=== PATIENT | female | born 1955 | race Caucasian/White ===

== ENCOUNTER 2019-12-09 04:08 | Inpatient (IN) | payer OTHER ==
[~2019-12-09] VITALS: Ht 160 cm; Wt 101.3 kg
[~2019-12-09 04:08] MED LIST: HYDR12.58 PO; LEVO137T3 PO; PANT40TA77 PO
[2019-12-09] MEDS ORDERED: fentaNYL PF VIAL 100 MCG/2 ML VIAL ONE (04:35)
--- NOTE | 2019-12-09 04:53 | PHYS DOC ---
Past Medical History Past Medical History: Alcoholism, COPD, GERD, Hypertension, Hypothyroid Past Surgical History: No Surgical History Smoking Status: Current Every Day Smoker Additional Information: 1 PPD X45 YEARS Alcohol Use: Heavy Additional Information: WINE DAILY 4 DRINKS Adult General Chief Complaint Chief Complaint: SHORTNESS OF BREATH HPI HPI Patient is a 64-year-old female heavy smoker who also drinks daily presents with a several day history of progressive shortness of breath cough congestion. Patient states she does continue to smoke. She has been coughing. She denies running any fever. She states her shortness of breath has been progressive she does have dyspnea on exertion. She states this feels very similar to previous exacerbations of her COPD. She has had no recent travel. She has not come in contact with anyone sick that she knows of. She denies any chest pain. Patient came by EMS and on their arrival to her house her oxygen saturation was in the mid 80s.[] Review of Systems Review of Systems Constitutional: Denies fever or chills [] Eyes: Denies change in visual acuity, redness, or eye pain [] HENT: Denies nasal congestion or sore throat [] Respiratory: Per history of present illness[] Cardiovascular: No additional information not addressed in HPI [] GI: Denies abdominal pain, nausea, vomiting, bloody stools or diarrhea [] : Denies dysuria or hematuria [] Musculoskeletal: Denies back pain or joint pain [] Integument: Denies rash or skin lesions [] Neurologic: Denies headache, focal weakness or sensory changes [] Endocrine: Denies polyuria or polydipsia [] All other systems were reviewed and found to be within normal limits, except as documented in this note. Current Medications Current Medications Current Medications Medications (Trade) Dose Ordered Sig/Pamela Start Time Stop Time Status Last Admin Dose Admin Acetaminophen (Tylenol) 650 mg PRN Q4HRS PRN 12/09/19 05:00 12/10/19 04:59 Albuterol Sulfate (Ventolin Neb Soln) 2.5 mg 1X ONCE 12/09/19 05:00 12/09/19 05:01 DC 12/09/19 05:12 2.5 MG Albuterol/ Ipratropium (Duoneb) 6 ml 1X ONCE 12/09/19 05:00 12/09/19 05:01 DC 12/09/19 05:12 6 ML Fentanyl Citrate (Fentanyl 2ml Vial) 100 mcg STK-MED ONCE 12/09/19 04:35 12/09/19 04:35 DC Methylprednisolone Sodium Succinate (SOLU-Medrol 125MG VIAL) 125 mg 1X ONCE 12/09/19 05:00 12/09/19 05:01 DC 12/09/19 05:11 125 MG Ondansetron HCl (Zofran) 4 mg PRN Q8HRS PRN 12/09/19 05:00 12/10/19 04:59 Sodium Chloride 1,000 ml @ 125 mls/hr Q8H 12/09/19 05:00 12/10/19 04:59 12/09/19 05:01 125 MLS/HR Allergies Allergies Allergies Uncoded Allergies Type Severity Reaction Last Updated Verified SULFA Allergy Intermediate FACIAL SWELLING 12/09/19 Physical Exam Physical Exam Constitutional: Well developed, well nourished, moderate respiratory distress, non-toxic appearance. [] HENT: Normocephalic, atraumatic, bilateral external ears normal, oropharynx moist, no oral exudates, nose normal. [] Eyes: PERRLA, EOMI, conjunctiva normal, no discharge. [] Neck: Normal range of motion, no tenderness, supple, no stridor. [] Cardiovascular:Heart rate regular rhythm, no murmur [] Lungs & Thorax: Wheezes throughout both lungs[] Abdomen: Bowel sounds normal, soft, no tenderness, no masses, no pulsatile masses. [] Skin: Warm, dry, no erythema, no rash. [] Back: No tenderness, no CVA tenderness. [] Extremities: No tenderness, no cyanosis, no clubbing, ROM intact, no edema. [] Neurologic: Alert and oriented X 3, normal motor function, normal sensory function, no focal deficits noted. [] Psychologic: Anxious. [] Current Patient Data Vital Signs Vital Signs Date Time Temp Pulse Resp B/P (MAP) Pulse Ox O2 Delivery O2 Flow Rate FiO2 12/09/19 05:17 100 Nasal Cannula 2.0 12/09/19 04:21 98.1 85 26 161/78 (105) 98.1 Lab Values Laboratory Tests Test 12/09/19 04:20 White Blood Count 8.0 x10^3/uL (4.0-11.0) Red Blood Count 4.11 x10^6/uL (3.50-5.40) Hemoglobin 14.5 g/dL (12.0-15.5) Hematocrit 41.6 % (36.0-47.0) Mean Corpuscular Volume 101 fL (79-100) H Mean Corpuscular Hemoglobin 35 pg (25-35) Mean Corpuscular Hemoglobin Concent 35 g/dL (31-37) Red Cell Distribution Width 12.8 % (11.5-14.5) Platelet Count 293 x10^3/uL (140-400) Neutrophils (%) (Auto) 48 % (31-73) Lymphocytes (%) (Auto) 22 % (24-48) L Monocytes (%) (Auto) 7 % (0-9) Eosinophils (%) (Auto) 23 % (0-3) H Basophils (%) (Auto) 1 % (0-3) Neutrophils # (Auto) 3.8 x10^3/uL (1.8-7.7) Lymphocytes # (Auto) 1.8 x10^3/uL (1.0-4.8) Monocytes # (Auto) 0.5 x10^3/uL (0.0-1.1) Eosinophils # (Auto) 1.8 x10^3/uL (0.0-0.7) H Basophils # (Auto) 0.1 x10^3/uL (0.0-0.2) Platelet Estimate Pending Sodium Level 126 mmol/L (136-145) L Potassium Level 3.8 mmol/L (3.5-5.1) Chloride Level 88 mmol/L (98-107) L Carbon Dioxide Level 32 mmol/L (21-32) Anion Gap 6 (6-14) Blood Urea Nitrogen 8 mg/dL (7-20) Creatinine 0.7 mg/dL (0.6-1.0) Estimated GFR (Cockcroft-Gault) 84.8 BUN/Creatinine Ratio 11 (6-20) Glucose Level 98 mg/dL (70-99) Calcium Level 10.1 mg/dL (8.5-10.1) Total Bilirubin 0.3 mg/dL (0.2-1.0) Aspartate Amino Transferase (AST) 22 U/L (15-37) Alanine Aminotransferase (ALT) 23 U/L (14-59) Alkaline Phosphatase 106 U/L (46-116) Troponin I Quantitative < 0.017 ng/mL (0.000-0.055) XF-Rik-Y-Type Natriuretic Peptide 224 pg/mL (0-124) H Total Protein 8.2 g/dL (6.4-8.2) Albumin 4.3 g/dL (3.4-5.0) Albumin/Globulin Ratio 1.1 (1.0-1.7) Laboratory Tests 12/09/19 04:20 Laboratory Tests 12/09/19 04:20 EKG EKG EKG: Normal sinus rhythm rate of [address]-T changes[] Radiology/Procedures Radiology/Procedures [] Course & Med Decision Making Course & Med Decision Making Pertinent Labs and Imaging studies reviewed. (See chart for details) [ED course: Evaluation reveals a 64-year-old female with a progressive history of shortness of breath and tobacco abuse. Her symptoms today seem consistent with a COPD exacerbation. She was given 125 of Solu-Medrol followed by 2 DuoNeb's and an albuterol nebulize treatment. After 3 treatments she continued to wheeze therefore I believe it's in her best interest to remain in the hospital for aggressive nebulized treatment.] CRITICAL CARE: Time spent was 35 minutes. This includes medical management, evaluation, reevaluation, discussion with consultants and family. Critical Care does NOT include time spent on separately billed procedures. Dragon Disclaimer Dragon Disclaimer This electronic medical record was generated, in whole or in part, using a voice recognition dictation system. Departure Departure Impression: Primary Impression: COPD with exacerbation Additional Impression: Hyponatremia Disposition: ADMITTED INPATIENT Admitting Physician: GABRIELLE Condition: GUARDED Referrals: MARSHALL LUTHER MD (PCP) Problem Qualifiers FRED STOVALL DO Dec 09, 2019 04:53
[2019-12-09 04:58] LABS: BASO # 0.1 x10^3/uL (0.0-0.2); BASO % 1 % (0-3); EOS # 1.8 x10^3/uL (0.0-0.7); EOS % 23 % (0-3); HEMATOCRIT 41.6 % (36.0-47.0); HEMOGLOBIN 14.5 g/dL (12.0-15.5); LYMPH # 1.8 x10^3/uL (1.0-4.8); LYMPH % 22 % (24-48); MEAN CORPUSCULAR HEMOGLOBIN 35 pg (25-35); MEAN CORPUSCULAR HGB CONC 35 g/dL (31-37); MEAN CORPUSCULAR VOLUME 101 fL (79-100); MONO # 0.5 x10^3/uL (0.0-1.1); MONO % 7 % (0-9); NEUT # 3.8 x10^3/uL (1.8-7.7); NEUT % 48 % (31-73); PLATELET COUNT 293 x10^3/uL (140-400); RED BLOOD COUNT 4.11 x10^6/uL (3.50-5.40); RED CELL DISTRIBUTION WIDTH 12.8 % (11.5-14.5)
[2019-12-09] MEDS ORDERED: ACETAMINOPHEN 325 MG TABLET. PO PRN (05:00)
[2019-12-09] MEDS ORDERED: ONDANSETRON PF 4 MG/2 ML VIAL. IV PRN (05:00)
[2019-12-09] MEDS ORDERED: IV NORMAL SALINE 1000ML BAG 1,000 ML IV SCH (05:00)
[2019-12-09] MEDS ORDERED: IPRATRPIUM/ALBUTEROL 0.5/2.5MG 3 ML NEBU. NEB ONE (05:00)
[2019-12-09] MEDS ORDERED: methylPREDNISolone SOD SUCC PF 125 MG/2 ML VIAL. IV ONE (05:00)
[2019-12-09] MEDS ORDERED: ALBUTEROL SULFATE 2.5 MG/3 ML NEBU. NEB ONE (05:00)
[2019-12-09 05:09] LABS: CALCIUM 10.1 mg/dL (8.5-10.1); CREATININE 0.7 mg/dL (0.6-1.0); GFR 84.8; POTASSIUM 3.8 mmol/L (3.5-5.1)
[2019-12-09 05:15] LABS: ALBUMIN 4.3 g/dL (3.4-5.0); ALBUMIN/GLOBULIN RATIO 1.1 (1.0-1.7); TOTAL BILIRUBIN 0.3 mg/dL (0.2-1.0); TOTAL PROTEIN 8.2 g/dL (6.4-8.2)
[2019-12-09 06:19] VITALS: BP 147/65
--- NOTE | 2019-12-09 06:40 | RAD ---
EXAM: CHEST ONE VIEW. HISTORY: Shortness of breath. COMPARISON: None. FINDINGS: A frontal view of the chest is obtained. Hyperinflation suggests chronic obstructive pulmonary disease or air trapping. There are no confluent infiltrates. There is no pneumothorax or pleural effusion. The heart is not enlarged. IMPRESSION: 1. Hyperinflation. Correlate for air trapping. No confluent infiltrates. Electronically signed by: Davidson Nina MD (12/09/2019 6:37 AM) [facility]
--- NOTE | 2019-12-09 06:46 | EKG ---
[facility] [address] [place] [address] Test Date: 2019-12-09 Test Time: 04:17:25 Pat Name: DILLON MARCUS Department: Room: [facility] Gender: F Senior Bi Developer: : 1955 Requested By: FRED STOVALL Order Number: [id number] Reading MD: Corbin Bah MD Measurements Intervals Dowell Rate: 89 P: 72 CA: 138 QRS: 79 QRSD: 88 T: 63 QT: 330 QTc: 402 Interpretive Statements SINUS RHYTHM NON-SPECIFIC ST/T CHANGES Electronically Signed On 12-10-2019 10:43:07 CDT by Corbin Bah MD
--- NOTE | 2019-12-09 08:14 | PDOC1 ---
History and Physical Date of Admission Date of Admission DATE: 12/09/19 TIME: 08:05 Identification/Chief Complaint Chief Complaint Shortness of breath Source Source: Patient History of Present Illness History of Present Illness Ms Moser is a 64yo F w/ PMHx COPD, GERD, Hypertension, Hypothyroid, heavy smoker who also drinks at least 4 glasses of wine daily presents with a several day history of progressive shortness of breath cough congestion. Patient states she does continue to smoke. She has been coughing. She denies running any fever. She states her shortness of breath has been progressive she does have dyspnea on exertion. She states this feels very similar to previous exacerbations of her COPD. She has had no recent travel. She has not come in contact with anyone sick that she knows of. She denies any chest pain. Patient came by EMS and on their arrival to her house her oxygen saturation was in the mid 80s. EKG - NSR. CXR - Hyperinflated, COPD Past Medical History Cardiovascular: HTN Pulmonary: COPD GI: GERD Psych: Addictions Endocrine: Hypothyroidism Past Surgical History Past Surgical History: No pertinent history Family History Family History: High Cholestrol, Hypertension, Hypothyroidism Social History Smoke: 2 packs per day ALCOHOL: heavy Drugs: None Current Problem List Problem List Problems Medical Problems: (1) COPD with exacerbation Status: Acute (2) Hyponatremia Status: Acute Current Medications Current Medications Current Medications Fentanyl Citrate (Fentanyl 2ml Vial) 100 mcg STK-MED ONCE .ROUTE ; Start 12/09/19 at 04:35; Stop 12/09/19 at 04:35; Status DC Albuterol/ Ipratropium (Duoneb) 6 ml 1X ONCE NEB Last administered on 12/09/19at 05:12; Start 12/09/19 at 05:00; Stop 12/09/19 at 05:01; Status DC Methylprednisolone Sodium Succinate (SOLU-Medrol 125MG VIAL) 125 mg 1X ONCE IV Last administered on 12/09/19at 05:11; Start 12/09/19 at 05:00; Stop 12/09/19 at 05:01; Status DC Albuterol Sulfate (Ventolin Neb Soln) 2.5 mg 1X ONCE NEB Last administered on 12/09/19at 05:12; Start 12/09/19 at 05:00; Stop 12/09/19 at 05:01; Status DC Ondansetron HCl (Zofran) 4 mg PRN Q8HRS PRN IV NAUSEA/VOMITING; Start 12/09/19 at 05:00; Stop 12/10/19 at 04:59 Sodium Chloride 1,000 ml @ 125 mls/hr Q8H IV Last administered on 12/09/19at 05:01; Start 12/09/19 at 05:00; Stop 12/10/19 at 04:59 Acetaminophen (Tylenol) 650 mg PRN Q4HRS PRN PO FEVER; Start 12/09/19 at 05:00; Stop 12/10/19 at 04:59 Albuterol/ Ipratropium (Duoneb) 3 ml RTQID NEB ; Start 12/09/19 at 08:00; Stop 12/10/19 at 07:59 Methylprednisolone Sodium Succinate (SOLU-Medrol 40MG VIAL) 40 mg Q8HRS IV ; Start 12/09/19 at 14:00 Active Scripts Active Reported Protonix (Pantoprazole Sodium) 40 Mg Tablet.dr 40 Mg PO DAILY Hydrochlorothiazide Tablet (Hydrochlorothiazide) 12.5 Mg Tablet 12.5 Mg PO DAILY Levothyroxine Sodium 137 Mcg Tablet 137 Mcg PO DAILYAC Allergies Allergies: Uncoded Allergies: SULFA (Allergy, Intermediate, FACIAL SWELLING, 12/09/19) PT REPORTS FACIAL SWELLING WITH SULFAS ROS General: YES: Fatigue, Malaise; No: Chills, Night Sweats, Appetite, Other PSYCHOLOGICAL ROS: YES: Anxiety; No: Behavioral Disorder, Concentration difficultie, Decreased libido, Depression, Disorientation, Hallucinations, Hostility, Irritablity, Memory difficulties, Mood Swings, Obsessive thoughts, Physical abuse, Sexual abuse, Sleep disturbances, Suicidal ideation, Other Eyes: No Blurry vision, No Decreased vision, No Double vision, No Dry eyes, No Excessive tearing, No Eye Pain, No Itchy Eyes, No Loss of vision, No Photophobia , No Scotomata, No Uses contacts, No Uses glasses, No Other HEENT: No: Heacaches, Visual Changes, Hearing change, Nasal congestion, Nasal discharge, Oral lesions, Sinus pain, Sore Throat, Epistaxis, Sneezing, Snoring, Tinnitus, Vertigo, Vocal changes, Other ALLERGY AND IMMUNOLOGY: No: Hives, Insect Bite Sensitivity, Itchy/Watery Eyes, Nasal Congestion, Post Nasal Drip, Seasonal Allergies, Other Hematological and Lymphatic: No: Bleeding Problems, Blood Clots, Blood Transfusions, Brusing, Night Sweats, Pallor, Swollen Lymph Nodes, Other ENDOCRINE: No: Breast Changes, Galactorrhea, Hair Pattern Changes, Hot Flashes, Malaise/lethargy, Mood Swings, Palpitations, Polydipsia/polyuria, Skin Changes, Temperature Intolerance, Unexpected Weight Changes, Other Breast: No New/Changing Breast Lumps, No Nipple changes, No Nipple discharge, No Other Respiratory: YES: Cough, Shortness of breath, SOB with excertion, Tachypnea, Wh eezing; No: Hemoptysis, Orthopnea, Pleuritic Pain, Sputum Changes, Stridor, Other Cardiovascular: No Chest Pain, No Palpitations, No Orthopnea, No Paroxysmal Noc. Dyspnea, No Edema, No Lt Headedness, No Other Gastrointestinal: No Nausea, No Vomiting, No Abdominal Pain, No Diarrhea, No Constipation, No Melena, No Hematochezia, No Other Genitourinary: No Dysuria, No Frequency, No Incontinence, No Hematuria, No Retention, No Discharge, No Urgency, No Pain, No Flank Pain, No Other, No , No , No , No , No , No , No Musculoskeletal: No Gait Disturbance, No Joint Pain, No Joint Stiffness, No Joint Swelling, No Muscle Pain, No Muscular Weakness, No Pain In:, No Swelling In:, No Other Neurological: No Behavorial Changes, No Bowel/Bladder ControlChng, No Confusion, No Dizziness, No Gait Disturbance, No Headaches, No Impaired Coord/balance, No Memory Loss, No Numbness/Tingling, No Seizures, No Speech Problems, No Tremors, No Visual Changes, No Weakness, No Other Skin: No Dry Skin, No Eczema, No Hair Changes, No Lumps, No Mole Changes, No Mottling, No Nail Changes, No Pruritus, No Rash, No Skin Lesion Changes, No Other, No Acne Vitals Vitals Vital Signs Date Time Temp Pulse Resp B/P (MAP) Pulse Ox O2 Delivery O2 Flow Rate FiO2 12/09/19 06:19 98.3 89 20 147/65 (92) 95 Nasal Cannula 2.0 98.3 Labs Labs Laboratory Tests Test 12/09/19 04:20 White Blood Count 8.0 x10^3/uL (4.0-11.0) Red Blood Count 4.11 x10^6/uL (3.50-5.40) Hemoglobin 14.5 g/dL (12.0-15.5) Hematocrit 41.6 % (36.0-47.0) Mean Corpuscular Volume 101 fL (79-100) Mean Corpuscular Hemoglobin 35 pg (25-35) Mean Corpuscular Hemoglobin Concent 35 g/dL (31-37) Red Cell Distribution Width 12.8 % (11.5-14.5) Platelet Count 293 x10^3/uL (140-400) Neutrophils (%) (Auto) 48 % (31-73) Lymphocytes (%) (Auto) 22 % (24-48) Monocytes (%) (Auto) 7 % (0-9) Eosinophils (%) (Auto) 23 % (0-3) Basophils (%) (Auto) 1 % (0-3) Neutrophils # (Auto) 3.8 x10^3/uL (1.8-7.7) Lymphocytes # (Auto) 1.8 x10^3/uL (1.0-4.8) Monocytes # (Auto) 0.5 x10^3/uL (0.0-1.1) Eosinophils # (Auto) 1.8 x10^3/uL (0.0-0.7) Basophils # (Auto) 0.1 x10^3/uL (0.0-0.2) Sodium Level 126 mmol/L (136-145) Potassium Level 3.8 mmol/L (3.5-5.1) Chloride Level 88 mmol/L (98-107) Carbon Dioxide Level 32 mmol/L (21-32) Anion Gap 6 (6-14) Blood Urea Nitrogen 8 mg/dL (7-20) Creatinine 0.7 mg/dL (0.6-1.0) Estimated GFR (Cockcroft-Gault) 84.8 BUN/Creatinine Ratio 11 (6-20) Glucose Level 98 mg/dL (70-99) Calcium Level 10.1 mg/dL (8.5-10.1) Total Bilirubin 0.3 mg/dL (0.2-1.0) Aspartate Amino Transf (AST/SGOT) 22 U/L (15-37) Alanine Aminotransferase (ALT/SGPT) 23 U/L (14-59) Alkaline Phosphatase 106 U/L (46-116) Troponin I Quantitative < 0.017 ng/mL (0.000-0.055) AG-Muf-S-Type Natriuretic Peptide 224 pg/mL (0-124) Total Protein 8.2 g/dL (6.4-8.2) Albumin 4.3 g/dL (3.4-5.0) Albumin/Globulin Ratio 1.1 (1.0-1.7) Laboratory Tests Test 12/09/19 04:20 White Blood Count 8.0 x10^3/uL (4.0-11.0) Red Blood Count 4.11 x10^6/uL (3.50-5.40) Hemoglobin 14.5 g/dL (12.0-15.5) Hematocrit 41.6 % (36.0-47.0) Mean Corpuscular Volume 101 fL (79-100) Mean Corpuscular Hemoglobin 35 pg (25-35) Mean Corpuscular Hemoglobin Concent 35 g/dL (31-37) Red Cell Distribution Width 12.8 % (11.5-14.5) Platelet Count 293 x10^3/uL (140-400) Neutrophils (%) (Auto) 48 % (31-73) Lymphocytes (%) (Auto) 22 % (24-48) Monocytes (%) (Auto) 7 % (0-9) Eosinophils (%) (Auto) 23 % (0-3) Basophils (%) (Auto) 1 % (0-3) Neutrophils # (Auto) 3.8 x10^3/uL (1.8-7.7) Lymphocytes # (Auto) 1.8 x10^3/uL (1.0-4.8) Monocytes # (Auto) 0.5 x10^3/uL (0.0-1.1) Eosinophils # (Auto) 1.8 x10^3/uL (0.0-0.7) Basophils # (Auto) 0.1 x10^3/uL (0.0-0.2) Sodium Level 126 mmol/L (136-145) Potassium Level 3.8 mmol/L (3.5-5.1) Chloride Level 88 mmol/L (98-107) Carbon Dioxide Level 32 mmol/L (21-32) Anion Gap 6 (6-14) Blood Urea Nitrogen 8 mg/dL (7-20) Creatinine 0.7 mg/dL (0.6-1.0) Estimated GFR (Cockcroft-Gault) 84.8 BUN/Creatinine Ratio 11 (6-20) Glucose Level 98 mg/dL (70-99) Calcium Level 10.1 mg/dL (8.5-10.1) Total Bilirubin 0.3 mg/dL (0.2-1.0) Aspartate Amino Transf (AST/SGOT) 22 U/L (15-37) Alanine Aminotransferase (ALT/SGPT) 23 U/L (14-59) Alkaline Phosphatase 106 U/L (46-116) Troponin I Quantitative < 0.017 ng/mL (0.000-0.055) ON-Hvp-A-Type Natriuretic Peptide 224 pg/mL (0-124) Total Protein 8.2 g/dL (6.4-8.2) Albumin 4.3 g/dL (3.4-5.0) Albumin/Globulin Ratio 1.1 (1.0-1.7) Images Images CXR - Hyperinflation suggests chronic obstructive pulmonary disease or air trapping. There are no confluent infiltrates. There is no pneumothorax or pleural effusion. The heart is not enlarged. IMPRESSION: 1. Hyperinflation. Correlate for air trapping. No confluent infiltrates. VTE Prophylaxis Ordered VTE Prophylaxis Devices: No VTE Pharmacological Prophylaxi: Yes Assessment/Plan Assessment/Plan A/P: Acute hypoxic respiratory failure - on new O2, will consult pulm and wean as tolerated. Steroids, nebs Acute exacerbation of chronic obstructive pulmonary disease - as above. Smoking cessation counseling given Heavy smoker since age 17 and continues to smoke, not interested in quitting ETOH use disorder - not controlled. CIWA scale, counseled on cessation Hyponatremia - likely due to poor nutrition and heavy ETOH use, alternatively could be legionella pneumonia, will consult pulm Macrocytosis - likely due to heavy alcohol use. Counseled on cessation FEN - General diet PPX - lovenox FULL CODE Dispo - inpatient due to hypoxia from COPD likely due to smoking BLAKE BENITEZ MD Dec 09, 2019 08:14
[2019-12-09] MEDS ORDERED: LORazepam 1 MG TABLET PO PRN (08:15)
[2019-12-09] MEDS ORDERED: cloNIDine HCL 0.1 MG TABLET PO PRN (08:15)
[2019-12-09] MEDS ORDERED: ALBUTEROL SULFATE 2.5 MG/3 ML NEBU. NEB PRN (08:15)
[2019-12-09] MEDS ORDERED: guaiFENesin DM 200MG/20MG 10 ML SYRUP PO PRN (08:45)
[2019-12-09] MEDS: BUDESONIDE 0.5 MG/2 ML NEBU. NEB SCH ×2 (09:24→20:10)
[2019-12-09] MEDS: IPRATRPIUM/ALBUTEROL 0.5/2.5MG 3 ML NEBU. NEB SCH ×4 (09:24→20:10)
[2019-12-09 10:21] LABS: % EOS 26 % (0-5); % LYMPHS 24 % (24-48); % MONOS 11 % (0-10); % SEGS 39 % (35-66); PLT ESTIMATE ADEQUATE (ADEQUATE)
[2019-12-09] MEDS ORDERED: LISI1TAB19 PO (10:56)
--- NOTE | 2019-12-09 10:58 | CONS ---
DATE OF CONSULTATION: PULMONARY CONSULTATION ATTENDING PHYSICIAN: Dr. Ceron. REASON FOR CONSULTATION: COPD exacerbation. HISTORY OF PRESENT ILLNESS: The patient is 64-year-old who has been a smoker since age 17 and continues to smoke 1 pack a day. She has history of alcoholism as well. She presented to the hospital with increased shortness of breath. She has a cough with white sputum production. No obvious fever. No nausea, vomiting, no diarrhea, no dysuria, no focal weakness. No history of deep vein thrombosis or pulmonary embolism. Saturations were in the mid-80s. She was placed on oxygen at 2 liters. Chest x-ray did not reveal any acute infiltrates. PAST MEDICAL HISTORY: COPD could be severe. Ongoing tobaccoism. PAST SURGICAL HISTORY: No recent surgeries. ALLERGIES: SULFA. MEDICATIONS: Reviewed as listed in the MRAD including IV steroids and bronchodilators. REVIEW OF SYSTEMS: Twelve-point system obtained. Pertinent positives discussed in my present illness, otherwise noncontributory. All systems that were negative were reviewed as well. SOCIAL HISTORY: Smoker since age 17 and continues to smoke cigarettes 1 pack a day. FAMILY HISTORY: Noncontributory to lungs. PHYSICAL EXAMINATION: VITAL SIGNS: Reviewed. Pulse ox initially was 100% on 15 liters, now down to 2 liters and 96% saturation. Afebrile. NECK: Supple. LUNGS: With diminished breath sounds. CARDIOVASCULAR: Regular rate. ABDOMEN: Soft, nontender. EXTREMITIES: With no pitting edema. LABORATORY DATA: Reviewed. White cell count 8.0, hemoglobin 14.5, platelets are 293. BUN and creatinine normal. IMPRESSION: 1. Acute exacerbation of chronic obstructive pulmonary disease in a patient who has been a smoker since age 17 and continues to smoke cigarette. Probably triggered by acute bronchitis. 2. No definite pneumonia seen on the chest x-ray. 3. History of alcoholism. RECOMMENDATIONS: 1. Clinically better. We will continue with present oxygen and wean FiO2 to keep saturation 92 and above. 2. Continue DuoNeb. 3. Continue with steroid inhaler, Pulmicort. 4. DVT prophylaxis. 5. IV steroids with taper. 6. Anticipate discharge in 24 hours. 7. Smoking cessation counseling provided. Discussed with RN. SANGEETHA MENDEZ MD DR: MICHELLE/fior JOB#: [id number] / [id number]
[2019-12-09 11:09] VITALS: BP 148/70
[2019-12-09] MEDS: hydroCHLOROthiazide 12.5 MG CAPSULE PO SCH (14:02)
[2019-12-09] MEDS: MULTIVITAMIN with MINERAL TABLET. PO SCH (14:02)
[2019-12-09] MEDS: PANTOPRAZOLE 40 MG TABLET.DR. PO SCH (14:03)
[2019-12-09] MEDS: FOLIC ACID 1 MG TABLET. PO SCH (14:03)
[2019-12-09] MEDS: LISINOPRIL 20 MG TABLET PO SCH (14:03)
[2019-12-09] MEDS: THIAMINE 100 MG TABLET. PO SCH (14:04)
[2019-12-09] MEDS: ENOXAPARIN 40 MG/0.4 ML SYRINGE. SQ SCH (14:05)
[2019-12-09] MEDS: NICOTINE 21MG PATCH. TD SCH (14:07)
[2019-12-09] MEDS: methylPREDNISolone SOD SUCC PF 40 MG/ML VIAL. IV SCH ×2 (14:12→21:43)
[2019-12-09 15:15] VITALS: BP 138/66
[2019-12-09 19:00] VITALS: BP 137/68
[2019-12-09] MEDS ORDERED: MONTELUKAST SODIUM 10 MG TABLET. PO SCH (21:00)
[2019-12-09 23:00] VITALS: BP 145/75
[2019-12-10] MEDS ORDERED: diphenhydrAMINE HCL 25 MG CAPSULE PO PRN (00:15)
[2019-12-10 03:00] VITALS: BP 93/66
[2019-12-10 05:49] LABS: CALCIUM 9.1 mg/dL (8.5-10.1); CREATININE 0.8 mg/dL (0.6-1.0); GFR 72.7; POTASSIUM 3.3 mmol/L (3.5-5.1)
[2019-12-10] MEDS ORDERED: LEVOTHYROXINE 112 MCG TABLET PO SCH (06:00)
[2019-12-10] MEDS: methylPREDNISolone SOD SUCC PF 40 MG/ML VIAL. IV SCH ×2 (06:23→14:19)
[2019-12-10 07:00] VITALS: BP 125/58
[2019-12-10] MEDS: IPRATRPIUM/ALBUTEROL 0.5/2.5MG 3 ML NEBU. NEB SCH ×4 (07:51→20:00)
[2019-12-10] MEDS: BUDESONIDE 0.5 MG/2 ML NEBU. NEB SCH ×2 (07:51→20:00)
[2019-12-10] MEDS: FOLIC ACID 1 MG TABLET. PO SCH (09:45)
[2019-12-10] MEDS: PANTOPRAZOLE 40 MG TABLET.DR. PO SCH (09:45)
[2019-12-10] MEDS: MULTIVITAMIN with MINERAL TABLET. PO SCH (09:45)
[2019-12-10] MEDS: THIAMINE 100 MG TABLET. PO SCH (09:45)
[2019-12-10] MEDS: hydroCHLOROthiazide 12.5 MG CAPSULE PO SCH (09:46)
[2019-12-10] MEDS: LISINOPRIL 20 MG TABLET PO SCH (09:46)
[2019-12-10] MEDS: NICOTINE 21MG PATCH. TD SCH (09:46)
[2019-12-10] MEDS: ENOXAPARIN 40 MG/0.4 ML SYRINGE. SQ SCH (09:47)
--- NOTE | 2019-12-10 10:35 | PDOC ---
PROGRESS NOTES History of Present Illness History of Present Illness Images Images CXR - Hyperinflation suggests chronic obstructive pulmonary disease or air trapping. There are no confluent infiltrates. There is no pneumothorax or pleural effusion. The heart is not enlarged. IMPRESSION: 1. Hyperinflation. Correlate for air trapping. No confluent infiltrates. VTE Prophylaxis Ordered VTE Prophylaxis Devices: No VTE Pharmacological Prophylaxi: Yes impression Assessment/Plan A/P: Acute hypoxic respiratory failure - on new O2, following with pulm and wean as tolerated. Steroids, nebs Acute exacerbation of chronic obstructive pulmonary disease - as above. Smoking cessation counseling DONE Heavy smoker since age 17 and continues to smoke, not interested in quitting ETOH use disorder - not controlled. CIWA scale, counseled on cessation Hyponatremia - likely due to poor nutrition and heavy ETOH use, alternatively could be legionella pneumonia, will consult pulm Macrocytosis - likely due to heavy alcohol use. DISCUSSED cessation FEN - General diet PPX - lovenox FULL CODE Dispo - inpatient due to hypoxia from COPD likely due to smoking ALCOHOL WITHDRAWAL PROTOCOL D/ W RN Vitals Vitals Vital Signs Date Time Temp Pulse Resp B/P (MAP) Pulse Ox O2 Delivery O2 Flow Rate FiO2 12/10/19 09:46 60 125/58 12/10/19 07:00 98.0 16 98 Nasal Cannula 2.0 98.0 Physical Exam General: Alert, Oriented X3, Cooperative, No acute distress Heart: Regular rate Lungs: Clear Abdomen: Normal bowel sounds, Soft, No tenderness Extremities: No cyanosis Labs LABS Laboratory Tests Test 12/09/19 14:00 12/10/19 04:50 Troponin I Quantitative < 0.017 ng/mL (0.000-0.055) Sodium Level 129 mmol/L (136-145) Potassium Level 3.3 mmol/L (3.5-5.1) Chloride Level 91 mmol/L (98-107) Carbon Dioxide Level 31 mmol/L (21-32) Anion Gap 7 (6-14) Blood Urea Nitrogen 12 mg/dL (7-20) Creatinine 0.8 mg/dL (0.6-1.0) Estimated GFR (Cockcroft-Gault) 72.7 Glucose Level 126 mg/dL (70-99) Calcium Level 9.1 mg/dL (8.5-10.1) Assessment and Plan Assessmemt and Plan Problems Medical Problems: (1) COPD with exacerbation Status: Acute (2) Hyponatremia Status: Acute Comment Review of Relevant I have reviewed the following items sofia (where applicable) has been applied. Labs Laboratory Tests Test 12/09/19 04:20 12/09/19 07:45 12/09/19 14:00 12/10/19 04:50 White Blood Count 8.0 x10^3/uL (4.0-11.0) Red Blood Count 4.11 x10^6/uL (3.50-5.40) Hemoglobin 14.5 g/dL (12.0-15.5) Hematocrit 41.6 % (36.0-47.0) Mean Corpuscular Volume 101 fL (79-100) Mean Corpuscular Hemoglobin 35 pg (25-35) Mean Corpuscular Hemoglobin Concent 35 g/dL (31-37) Red Cell Distribution Width 12.8 % (11.5-14.5) Platelet Count 293 x10^3/uL (140-400) Neutrophils (%) (Auto) 48 % (31-73) Lymphocytes (%) (Auto) 22 % (24-48) Monocytes (%) (Auto) 7 % (0-9) Eosinophils (%) (Auto) 23 % (0-3) Basophils (%) (Auto) 1 % (0-3) Neutrophils # (Auto) 3.8 x10^3/uL (1.8-7.7) Lymphocytes # (Auto) 1.8 x10^3/uL (1.0-4.8) Monocytes # (Auto) 0.5 x10^3/uL (0.0-1.1) Eosinophils # (Auto) 1.8 x10^3/uL (0.0-0.7) Basophils # (Auto) 0.1 x10^3/uL (0.0-0.2) Segmented Neutrophils % 39 % (35-66) Lymphocytes % 24 % (24-48) Monocytes % 11 % (0-10) Eosinophils % 26 % (0-5) Platelet Estimate Adequate (ADEQUATE) Sodium Level 126 mmol/L (136-145) 129 mmol/L (136-145) Potassium Level 3.8 mmol/L (3.5-5.1) 3.3 mmol/L (3.5-5.1) Chloride Level 88 mmol/L (98-107) 91 mmol/L (98-107) Carbon Dioxide Level 32 mmol/L (21-32) 31 mmol/L (21-32) Anion Gap 6 (6-14) 7 (6-14) Blood Urea Nitrogen 8 mg/dL (7-20) 12 mg/dL (7-20) Creatinine 0.7 mg/dL (0.6-1.0) 0.8 mg/dL (0.6-1.0) Estimated GFR (Cockcroft-Gault) 84.8 72.7 BUN/Creatinine Ratio 11 (6-20) Glucose Level 98 mg/dL (70-99) 126 mg/dL (70-99) Calcium Level 10.1 mg/dL (8.5-10.1) 9.1 mg/dL (8.5-10.1) Total Bilirubin 0.3 mg/dL (0.2-1.0) Aspartate Amino Transf (AST/SGOT) 22 U/L (15-37) Alanine Aminotransferase (ALT/SGPT) 23 U/L (14-59) Alkaline Phosphatase 106 U/L (46-116) Troponin I Quantitative < 0.017 ng/mL (0.000-0.055) < 0.017 ng/mL (0.000-0.055) < 0.017 ng/mL (0.000-0.055) PQ-Otg-A-Type Natriuretic Peptide 224 pg/mL (0-124) Total Protein 8.2 g/dL (6.4-8.2) Albumin 4.3 g/dL (3.4-5.0) Albumin/Globulin Ratio 1.1 (1.0-1.7) Laboratory Tests Test 12/09/19 14:00 12/10/19 04:50 Troponin I Quantitative < 0.017 ng/mL (0.000-0.055) Sodium Level 129 mmol/L (136-145) Potassium Level 3.3 mmol/L (3.5-5.1) Chloride Level 91 mmol/L (98-107) Carbon Dioxide Level 31 mmol/L (21-32) Anion Gap 7 (6-14) Blood Urea Nitrogen 12 mg/dL (7-20) Creatinine 0.8 mg/dL (0.6-1.0) Estimated GFR (Cockcroft-Gault) 72.7 Glucose Level 126 mg/dL (70-99) Calcium Level 9.1 mg/dL (8.5-10.1) Medications Current Medications Fentanyl Citrate (Fentanyl 2ml Vial) 100 mcg STK-MED ONCE .ROUTE ; Start 12/09/19 at 04:35; Stop 12/09/19 at 04:35; Status DC Albuterol/ Ipratropium (Duoneb) 6 ml 1X ONCE NEB Last administered on 12/09/19at 05:12; Start 12/09/19 at 05:00; Stop 12/09/19 at 05:01; Status DC Methylprednisolone Sodium Succinate (SOLU-Medrol 125MG VIAL) 125 mg 1X ONCE IV Last administered on 12/09/19at 05:11; Start 12/09/19 at 05:00; Stop 12/09/19 at 05:01; Status DC Albuterol Sulfate (Ventolin Neb Soln) 2.5 mg 1X ONCE NEB Last administered on 12/09/19at 05:12; Start 12/09/19 at 05:00; Stop 12/09/19 at 05:01; Status DC Ondansetron HCl (Zofran) 4 mg PRN Q8HRS PRN IV NAUSEA/VOMITING; Start 12/09/19 at 05:00; Stop 12/10/19 at 04:59; Status DC Sodium Chloride 1,000 ml @ 125 mls/hr Q8H IV Last administered on 12/09/19at 05:01; Start 12/09/19 at 05:00; Stop 12/09/19 at 08:14; Status DC Acetaminophen (Tylenol) 650 mg PRN Q4HRS PRN PO FEVER Last administered on 12/09/19at 21:43; Start 12/09/19 at 05:00; Stop 12/10/19 at 04:59; Status DC Albuterol/ Ipratropium (Duoneb) 3 ml RTQID NEB Last administered on 12/10/19at 07:51; Start 12/09/19 at 08:00 Methylprednisolone Sodium Succinate (SOLU-Medrol 40MG VIAL) 40 mg Q8HRS IV Last administered on 12/10/19at 06:23; Start 12/09/19 at 14:00 Budesonide (Pulmicort) 0.5 mg RTBID NEB Last administered on 12/10/19 07:51; Start 12/09/19 at 08:15 Multivitamins (Thera M Plus) 1 tab DAILY PO Last administered on 12/10/19 09:45; Start 12/09/19 at 09:00 Folic Acid (Folic Acid) 1 mg DAILY PO Last administered on 12/10/19 09:45; Start 12/09/19 at 09:00 Thiamine Mononitrate (Vitamin B-1) 100 mg DAILY PO Last administered on 12/10/19 09:45; Start 12/09/19 at 09:00 Lorazepam (Ativan) 1 mg PRN Q4HRS PRN PO For CIWA 8-14; Start 12/09/19 at 08:15 Lorazepam (Ativan Inj) 1 mg PRN Q4HRS PRN IV For CIWA 8-14; Start 12/09/19 at 08:15 Clonidine HCl (Catapres) 0.1 mg PRN Q1HR PRN PO SBP > 180 or DBP > 100, MRX3; Start 12/09/19 at 08:15 Albuterol Sulfate (Ventolin Neb Soln) 2.5 mg PRN Q4HRS PRN NEB SHORTNESS OF BREATH; Start 12/09/19 at 08:15 Enoxaparin Sodium (Lovenox 40mg Syringe) 40 mg Q24H SQ Last administered on 12/10/19 09:47; Start 12/09/19 at 08:45 Montelukast Sodium (Singulair) 10 mg QHS PO Last administered on 12/09/19 21:43; Start 12/09/19 at 21:00 Guaifenesin (Robitussin Dm) 10 ml PRN Q6HRS PRN PO COUGH; Start 12/09/19 at 08:45 Nicotine (Nicoderm Cq 21mg) 1 patch DAILY TD Last administered on 12/10/19 09:46; Start 12/09/19 at 09:00 Levothyroxine Sodium (Synthroid) 112 mcg DAILY06 PO Last administered on 12/10/19 06:22; Start 12/10/19 at 06:00 Pantoprazole Sodium (Protonix) 40 mg DAILYAC PO Last administered on 4/6/20at 09:45; Start 12/09/19 at 11:30 Lisinopril (Prinivil) 20 mg DAILY PO Last administered on 12/10/19 09:46; Start 12/09/19 at 12:00 Hydrochlorothiazide (Microzide) 12.5 mg DAILY PO Last administered on 12/10/19at 09:46; Start 12/09/19 at 12:00 Diphenhydramine HCl (Benadryl) 50 mg PRN Q6HRS PRN PO ITCHING Last administered on 12/10/19at 00:24; Start 12/10/19 at 00:15 Active Scripts Active Reported Lisinopril-Hctz 20-12.5 Mg Tab (Lisinopril/Hydrochlorothiazide) 1 Each Tablet 1 Tab PO DAILY Protonix (Pantoprazole Sodium) 40 Mg Tablet.dr 40 Mg PO DAILY Hydrochlorothiazide Tablet (Hydrochlorothiazide) 12.5 Mg Tablet 12.5 Mg PO DAILY Levothyroxine Sodium 137 Mcg Tablet 112 Mcg PO DAILYAC Vitals/I & O Vital Sign - Last 24 Hours 12/09/19 12/09/19 12/09/19 12/09/19 11:09 14:03 15:15 17:02 Temp 98.3 98.3 98.3 98.3 Pulse 96 96 96 Resp 16 16 B/P (MAP) 148/70 (96) 148/70 138/66 (90) Pulse Ox 92 98 88 O2 Delivery Nasal Cannula Nasal Cannula Room Air O2 Flow Rate 2.0 2.0 12/09/19 12/09/19 12/09/19 12/09/19 19:00 20:00 20:15 23:00 Temp 98.7 98.9 98.7 98.9 Pulse 99 83 Resp 18 B/P (MAP) 137/68 (91) 145/75 (98) Pulse Ox 92 95 94 O2 Delivery Nasal Cannula Nasal Cannula Nasal Cannula Nasal Cannula O2 Flow Rate 2.0 2.0 2.0 12/10/19 12/10/19 12/10/19 03:00 07:00 09:46 Temp 98.3 98.0 98.3 98.0 Pulse 84 60 60 Resp 16 16 B/P (MAP) 93/66 (75) 125/58 (80) 125/58 Pulse Ox 97 98 O2 Delivery Room Air Nasal Cannula O2 Flow Rate 2.0 Intake and Output 12/09/19 12/09/19 12/10/19 15:00 23:00 07:00 Intake Total 400 ml 700 ml Balance 400 ml 700 ml DESEAN THOMPSON MD Dec 10, 2019 10:35
[2019-12-10 11:00] VITALS: BP 131/50
--- NOTE | 2019-12-10 13:10 | NUR ---
SW following. Discussed with RN, pt from home with . RN advised no SW needs at this time. SW will continue to follow.
[2019-12-10] MEDS ORDERED: POTASSIUM CHLORIDE 20 MEQ TABLET.ER. PO ONE (15:00)
[2019-12-10 15:01] VITALS: BP 116/58
--- NOTE | 2019-12-10 15:12 | PDOC3 ---
Discharge Summary Date of Admission: Dec 09, 2019 Date of Discharge: Dec 10, 2019 Follow-Up: 3-5 days Admitting Diagnosis comment: DISMISSAL DX Assessment/Plan A/P: Acute hypoxic respiratory failure - on new O2, following with pulm and wean as tolerated. Steroids, nebs Acute exacerbation of chronic obstructive pulmonary disease - as above. Smoking cessation counseling DONE Heavy smoker since age 17 and continues to smoke, not interested in quitting ETOH use disorder - not controlled. CIWA scale, counseled on cessation Hyponatremia - likely due to poor nutrition and heavy ETOH use, alternatively could be legionella pneumonia, will consult pulm Macrocytosis - likely due to heavy alcohol use. DISCUSSED cessation FEN - General diet PPX - lovenox FULL CODE Dispo - inpatient due to hypoxia from COPD likely due to smoking ALCOHOL WITHDRAWAL PROTOCOL D/ W RN 28 MIN D/C PLANNING TIME Vitals Vitals Vital Signs ON ROOM AIR Date Time Temp Pulse Resp B/P (MAP) Pulse Ox O2 Delivery O2 Flow Rate FiO2 12/10/19 09:46 60 125/58 12/10/19 07:00 98.0 16 98 Nasal Cannula 2.0 98.0 Physical Exam General: Alert, Oriented X3, Cooperative, No acute distress Heart: Regular rate Lungs: Clear Abdomen: Normal bowel sounds, Soft, No tenderness Extremities: No cyanosis Labs LABS Laboratory Tests Test 12/09/19 14:00 12/10/19 04:50 Troponin I Quantitative < 0.017 ng/mL (0.000-0.055) Sodium Level 129 mmol/L (136-145) Potassium Level 3.3 mmol/L (3.5-5.1) Chloride Level 91 mmol/L (98-107) Carbon Dioxide Level 31 mmol/L (21-32) Anion Gap 7 (6-14) Blood Urea Nitrogen 12 mg/dL (7-20) Creatinine 0.8 mg/dL (0.6-1.0) Estimated GFR (Cockcroft-Gault) 72.7 Glucose Level 126 mg/dL (70-99) Calcium Level 9.1 mg/dL (8.5-10.1) FINAL DIAGNOSIS Problems Medical Problems: (1) COPD with exacerbation Status: Acute (2) Hyponatremia Status: Acute Brief Hospital Course Ms. Moser is a 64 old [sex] who presented with [ACUTE COPD EXAC ] CONDITION AT DISCHARGE: Improved Discharge Medications Current Medications Fentanyl Citrate (Fentanyl 2ml Vial) 100 mcg STK-MED ONCE .ROUTE ; Start 12/09/19 at 04:35; Stop 12/09/19 at 04:35; Status DC Albuterol/ Ipratropium (Duoneb) 6 ml 1X ONCE NEB Last administered on 12/09/19at 05:12; Start 12/09/19 at 05:00; Stop 12/09/19 at 05:01; Status DC Methylprednisolone Sodium Succinate (SOLU-Medrol 125MG VIAL) 125 mg 1X ONCE IV Last administered on 12/09/19at 05:11; Start 12/09/19 at 05:00; Stop 12/09/19 at 05:01; Status DC Albuterol Sulfate (Ventolin Neb Soln) 2.5 mg 1X ONCE NEB Last administered on 12/09/19at 05:12; Start 12/09/19 at 05:00; Stop 12/09/19 at 05:01; Status DC Ondansetron HCl (Zofran) 4 mg PRN Q8HRS PRN IV NAUSEA/VOMITING; Start 12/09/19 at 05:00; Stop 12/10/19 at 04:59; Status DC Sodium Chloride 1,000 ml @ 125 mls/hr Q8H IV Last administered on 12/09/19at 05:01; Start 12/09/19 at 05:00; Stop 12/09/19 at 08:14; Status DC Acetaminophen (Tylenol) 650 mg PRN Q4HRS PRN PO FEVER Last administered on 12/09/19at 21:43; Start 12/09/19 at 05:00; Stop 12/10/19 at 04:59; Status DC Albuterol/ Ipratropium (Duoneb) 3 ml RTQID NEB Last administered on 12/10/19at 11:15; Start 12/09/19 at 08:00 Methylprednisolone Sodium Succinate (SOLU-Medrol 40MG VIAL) 40 mg Q8HRS IV Last administered on 12/10/19at 14:19; Start 12/09/19 at 14:00 Budesonide (Pulmicort) 0.5 mg RTBID NEB Last administered on 12/10/19 07:51; Start 12/09/19 at 08:15 Multivitamins (Thera M Plus) 1 tab DAILY PO Last administered on 12/10/19 09:45; Start 12/09/19 at 09:00 Folic Acid (Folic Acid) 1 mg DAILY PO Last administered on 12/10/19 09:45; Start 12/09/19 at 09:00 Thiamine Mononitrate (Vitamin B-1) 100 mg DAILY PO Last administered on 12/10/19 09:45; Start 12/09/19 at 09:00 Lorazepam (Ativan) 1 mg PRN Q4HRS PRN PO For CIWA 8-14; Start 12/09/19 at 08:15 Lorazepam (Ativan Inj) 1 mg PRN Q4HRS PRN IV For CIWA 8-14; Start 12/09/19 at 08:15 Clonidine HCl (Catapres) 0.1 mg PRN Q1HR PRN PO SBP > 180 or DBP > 100, MRX3; Start 12/09/19 at 08:15 Albuterol Sulfate (Ventolin Neb Soln) 2.5 mg PRN Q4HRS PRN NEB SHORTNESS OF BREATH; Start 12/09/19 at 08:15 Enoxaparin Sodium (Lovenox 40mg Syringe) 40 mg Q24H SQ Last administered on 12/10/19 09:47; Start 12/09/19 at 08:45 Montelukast Sodium (Singulair) 10 mg QHS PO Last administered on 12/09/19 21:43; Start 12/09/19 at 21:00 Guaifenesin (Robitussin Dm) 10 ml PRN Q6HRS PRN PO COUGH; Start 12/09/19 at 08:45 Nicotine (Nicoderm Cq 21mg) 1 patch DAILY TD Last administered on 12/10/19 09:46; Start 12/09/19 at 09:00 Levothyroxine Sodium (Synthroid) 112 mcg DAILY06 PO Last administered on 12/10/19 06:22; Start 12/10/19 at 06:00 Pantoprazole Sodium (Protonix) 40 mg DAILYAC PO Last administered on 12/10/19 09:45; Start 12/09/19 at 11:30 Lisinopril (Prinivil) 20 mg DAILY PO Last administered on 12/10/19at 09:46; Start 12/09/19 at 12:00 Hydrochlorothiazide (Microzide) 12.5 mg DAILY PO Last administered on 12/10/19at 09:46; Start 12/09/19 at 12:00 Diphenhydramine HCl (Benadryl) 50 mg PRN Q6HRS PRN PO ITCHING Last administered on 12/10/19at 00:24; Start 12/10/19 at 00:15 Potassium Chloride (Klor-Con) 40 meq 1X ONCE PO ; Start 12/10/19 at 15:00; Stop 12/10/19 at 15:01; Status DC Potassium Chloride (Klor-Con) 20 meq DAILYWBKFT PO ; Start 12/11/19 at 08:00 Active Scripts Active Reported Lisinopril-Hctz 20-12.5 Mg Tab (Lisinopril/Hydrochlorothiazide) 1 Each Tablet 1 Tab PO DAILY Protonix (Pantoprazole Sodium) 40 Mg Tablet.dr 40 Mg PO DAILY Hydrochlorothiazide Tablet (Hydrochlorothiazide) 12.5 Mg Tablet 12.5 Mg PO DAILY Levothyroxine Sodium 137 Mcg Tablet 112 Mcg PO DAILYAC Vital Signs Vital Signs Date Time Temp Pulse Resp B/P (MAP) Pulse Ox O2 Delivery O2 Flow Rate FiO2 12/10/19 15:01 97.9 95 16 116/58 (77) 93 Room Air 97.9 12/10/19 11:16 2.0 Labs Laboratory Tests Test 12/09/19 04:20 12/09/19 07:45 12/09/19 14:00 12/10/19 04:50 White Blood Count 8.0 x10^3/uL (4.0-11.0) Red Blood Count 4.11 x10^6/uL (3.50-5.40) Hemoglobin 14.5 g/dL (12.0-15.5) Hematocrit 41.6 % (36.0-47.0) Mean Corpuscular Volume 101 fL (79-100) Mean Corpuscular Hemoglobin 35 pg (25-35) Mean Corpuscular Hemoglobin Concent 35 g/dL (31-37) Red Cell Distribution Width 12.8 % (11.5-14.5) Platelet Count 293 x10^3/uL (140-400) Neutrophils (%) (Auto) 48 % (31-73) Lymphocytes (%) (Auto) 22 % (24-48) Monocytes (%) (Auto) 7 % (0-9) Eosinophils (%) (Auto) 23 % (0-3) Basophils (%) (Auto) 1 % (0-3) Neutrophils # (Auto) 3.8 x10^3/uL (1.8-7.7) Lymphocytes # (Auto) 1.8 x10^3/uL (1.0-4.8) Monocytes # (Auto) 0.5 x10^3/uL (0.0-1.1) Eosinophils # (Auto) 1.8 x10^3/uL (0.0-0.7) Basophils # (Auto) 0.1 x10^3/uL (0.0-0.2) Segmented Neutrophils % 39 % (35-66) Lymphocytes % 24 % (24-48) Monocytes % 11 % (0-10) Eosinophils % 26 % (0-5) Platelet Estimate Adequate (ADEQUATE) Sodium Level 126 mmol/L (136-145) 129 mmol/L (136-145) Potassium Level 3.8 mmol/L (3.5-5.1) 3.3 mmol/L (3.5-5.1) Chloride Level 88 mmol/L (98-107) 91 mmol/L (98-107) Carbon Dioxide Level 32 mmol/L (21-32) 31 mmol/L (21-32) Anion Gap 6 (6-14) 7 (6-14) Blood Urea Nitrogen 8 mg/dL (7-20) 12 mg/dL (7-20) Creatinine 0.7 mg/dL (0.6-1.0) 0.8 mg/dL (0.6-1.0) Estimated GFR (Cockcroft-Gault) 84.8 72.7 BUN/Creatinine Ratio 11 (6-20) Glucose Level 98 mg/dL (70-99) 126 mg/dL (70-99) Calcium Level 10.1 mg/dL (8.5-10.1) 9.1 mg/dL (8.5-10.1) Total Bilirubin 0.3 mg/dL (0.2-1.0) Aspartate Amino Transf (AST/SGOT) 22 U/L (15-37) Alanine Aminotransferase (ALT/SGPT) 23 U/L (14-59) Alkaline Phosphatase 106 U/L (46-116) Troponin I Quantitative < 0.017 ng/mL (0.000-0.055) < 0.017 ng/mL (0.000-0.055) < 0.017 ng/mL (0.000-0.055) HD-Stm-V-Type Natriuretic Peptide 224 pg/mL (0-124) Total Protein 8.2 g/dL (6.4-8.2) Albumin 4.3 g/dL (3.4-5.0) Albumin/Globulin Ratio 1.1 (1.0-1.7) Laboratory Tests Test 12/10/19 04:50 Sodium Level 129 mmol/L (136-145) Potassium Level 3.3 mmol/L (3.5-5.1) Chloride Level 91 mmol/L (98-107) Carbon Dioxide Level 31 mmol/L (21-32) Anion Gap 7 (6-14) Blood Urea Nitrogen 12 mg/dL (7-20) Creatinine 0.8 mg/dL (0.6-1.0) Estimated GFR (Cockcroft-Gault) 72.7 Glucose Level 126 mg/dL (70-99) Calcium Level 9.1 mg/dL (8.5-10.1) Allergies Allergies Uncoded Allergies Type Severity Reaction Last Updated Verified SULFA Allergy Intermediate FACIAL SWELLING 12/09/19 Disposition/Orders: D/C to Home DESEAN THOMPSON MD Dec 10, 2019 15:12
[2019-12-10] MEDS ORDERED: THIA100T22 PO (15:16)
[2019-12-10] MEDS ORDERED: MULT1TAB90 PO (15:16)
[2019-12-10] MEDS ORDERED: Nicotine 21MG TD (15:16)
[2019-12-10] MEDS ORDERED: Folic Acid PO (15:16)
[2019-12-10] MEDS ORDERED: GUAI5SYR PO (15:16)
[2019-12-10] MEDS ORDERED: IPRA3AMP29 NEB (15:16)
[2019-12-10] MEDS ORDERED: MONT10TA49 PO (15:16)
[2019-12-10] MEDS ORDERED: POTA20TA4 PO (15:16)
[2019-12-10] MEDS ORDERED: BUDE0.5A NEB (15:16)
--- NOTE | 2019-12-10 15:17 | DISCH ---
DISCHARGE INSTRUCTIONS Condition on Discharge Condition on Discharge: Stable Activity After Discharge Activity Instructions for Disc: Activity as tolerated Lifting Instructions after Dis: No heavy lifting, No pulling or pushing Driving Instructions after Dis: Do not drive Diet after Discharge Diet after Discharge: Cardiac Liquid Texture: Thin Liquid Contacting the DR. after DC Call your doctor for: If your condition worsens Treatment/Equipment after DC Discharge Respiratory Equipmen: Nebulizer DESEAN THOMPSON MD Dec 10, 2019 15:17
--- NOTE | 2019-12-10 15:38 | PDOC ---
PULMONARY PROGRESS NOTES Subjective clinically better no soa Vitals Vital Signs Date Time Temp Pulse Resp B/P (MAP) Pulse Ox O2 Delivery O2 Flow Rate FiO2 12/10/19 15:30 Nasal Cannula 2.0 12/10/19 15:01 97.9 95 16 116/58 (77) 93 97.9 General: Alert, No acute distress Lungs: Clear Cardiovascular: S1 Abdomen: Soft Neuro Exam: Alert Extremities: No Edema Labs Laboratory Tests Test 12/09/19 04:20 12/09/19 07:45 12/09/19 14:00 12/10/19 04:50 White Blood Count 8.0 x10^3/uL (4.0-11.0) Red Blood Count 4.11 x10^6/uL (3.50-5.40) Hemoglobin 14.5 g/dL (12.0-15.5) Hematocrit 41.6 % (36.0-47.0) Mean Corpuscular Volume 101 fL (79-100) Mean Corpuscular Hemoglobin 35 pg (25-35) Mean Corpuscular Hemoglobin Concent 35 g/dL (31-37) Red Cell Distribution Width 12.8 % (11.5-14.5) Platelet Count 293 x10^3/uL (140-400) Neutrophils (%) (Auto) 48 % (31-73) Lymphocytes (%) (Auto) 22 % (24-48) Monocytes (%) (Auto) 7 % (0-9) Eosinophils (%) (Auto) 23 % (0-3) Basophils (%) (Auto) 1 % (0-3) Neutrophils # (Auto) 3.8 x10^3/uL (1.8-7.7) Lymphocytes # (Auto) 1.8 x10^3/uL (1.0-4.8) Monocytes # (Auto) 0.5 x10^3/uL (0.0-1.1) Eosinophils # (Auto) 1.8 x10^3/uL (0.0-0.7) Basophils # (Auto) 0.1 x10^3/uL (0.0-0.2) Segmented Neutrophils % 39 % (35-66) Lymphocytes % 24 % (24-48) Monocytes % 11 % (0-10) Eosinophils % 26 % (0-5) Platelet Estimate Adequate (ADEQUATE) Sodium Level 126 mmol/L (136-145) 129 mmol/L (136-145) Potassium Level 3.8 mmol/L (3.5-5.1) 3.3 mmol/L (3.5-5.1) Chloride Level 88 mmol/L (98-107) 91 mmol/L (98-107) Carbon Dioxide Level 32 mmol/L (21-32) 31 mmol/L (21-32) Anion Gap 6 (6-14) 7 (6-14) Blood Urea Nitrogen 8 mg/dL (7-20) 12 mg/dL (7-20) Creatinine 0.7 mg/dL (0.6-1.0) 0.8 mg/dL (0.6-1.0) Estimated GFR (Cockcroft-Gault) 84.8 72.7 BUN/Creatinine Ratio 11 (6-20) Glucose Level 98 mg/dL (70-99) 126 mg/dL (70-99) Calcium Level 10.1 mg/dL (8.5-10.1) 9.1 mg/dL (8.5-10.1) Total Bilirubin 0.3 mg/dL (0.2-1.0) Aspartate Amino Transf (AST/SGOT) 22 U/L (15-37) Alanine Aminotransferase (ALT/SGPT) 23 U/L (14-59) Alkaline Phosphatase 106 U/L (46-116) Troponin I Quantitative < 0.017 ng/mL (0.000-0.055) < 0.017 ng/mL (0.000-0.055) < 0.017 ng/mL (0.000-0.055) RH-Xgx-P-Type Natriuretic Peptide 224 pg/mL (0-124) Total Protein 8.2 g/dL (6.4-8.2) Albumin 4.3 g/dL (3.4-5.0) Albumin/Globulin Ratio 1.1 (1.0-1.7) Laboratory Tests Test 12/10/19 04:50 Sodium Level 129 mmol/L (136-145) Potassium Level 3.3 mmol/L (3.5-5.1) Chloride Level 91 mmol/L (98-107) Carbon Dioxide Level 31 mmol/L (21-32) Anion Gap 7 (6-14) Blood Urea Nitrogen 12 mg/dL (7-20) Creatinine 0.8 mg/dL (0.6-1.0) Estimated GFR (Cockcroft-Gault) 72.7 Glucose Level 126 mg/dL (70-99) Calcium Level 9.1 mg/dL (8.5-10.1) Medications Active Scripts Medications Dose Route/Sig Max Daily Dose Days Date Category Thera-M Tablet (Multivits,Ca,Minerals/Iron/Fa) 1 Each Tablet 1 Tab PO DAILY 30 12/10/19 Rx Vitamin B-1 (Thiamine Mononitrate) 100 Mg Tablet 100 Mg PO DAILY 30 12/10/19 Rx [Folic Acid] 1 MG Tablet 1 Mg PO DAILY 30 12/10/19 Rx Montelukast Sodium Tablet (Montelukast Sodium) 10 Mg Tablet 10 Mg PO QHS 30 12/10/19 Rx Budesonide 0.5 Mg/2 Ml Ampul.neb 0.5 Mg NEB RTBID 30 12/10/19 Rx Guaifenesin Dm Syrup (Guaifenesin/Dextromethorphan) 5 Ml Syrup 10 Ml PO PRN Q6HRS PRN 14 12/10/19 Rx Klor-Con M20 (Potassium Chloride) 20 Meq Tab.er.prt 20 Meq PO DAILYWBKFT 10 12/10/19 Rx [Nicotine 21MG] 1 PATCH Patch 1 Patch TD DAILY 30 12/10/19 Rx Duoneb 0.5-3(2.5) Mg/3 Ml (Albuterol/Ipratropium) 3 Ml Ampul.neb 3 Ml NEB RTQID 14 12/10/19 Rx Lisinopril-Hctz 20-12.5 Mg Tab (Lisinopril/Hydrochlorothiazide) 1 Each Tablet 1 Tab PO DAILY 12/09/19 Reported Protonix (Pantoprazole Sodium) 40 Mg Tablet.dr 40 Mg PO DAILY 04/22/16 Reported Hydrochlorothiazide Tablet (Hydrochlorothiazide) 12.5 Mg Tablet 12.5 Mg PO DAILY 04/22/16 Reported Levothyroxine Sodium 137 Mcg Tablet 112 Mcg PO DAILYAC 04/22/16 Reported Impression . 1. Acute exacerbation of chronic obstructive pulmonary disease in a patient who has been a smoker since age 17 and continues to smoke cigarette. Probably triggered by acute bronchitis. 2. No definite pneumonia seen on the chest x-ray. 3. History of alcoholism. Plan . 1. Clinically better. We will continue with present oxygen and wean FiO2 to keep saturation 92 and above. 2. Continue DuoNeb. 3. Continue with steroid inhaler, Pulmicort. 4. DVT prophylaxis. 5. can dc steroids 6. Anticipate discharge today 7. Smoking cessation counseling provided. Discussed with RN. SANGEETHA MENDEZ MD Dec 10, 2019 15:38
--- NOTE | 2019-12-10 18:20 | NUR ---
Pt discharged home with self care. Discharge instructions and prescriptions discussed by MISTY Vicente. Pt verbalized understanding. IV removed by [facility]. Pt ambulated to main entrance with [facility] and was secured in vehicle with .
[2019-12-11] MEDS ORDERED: POTASSIUM CHLORIDE 20 MEQ TABLET.ER. PO SCH (08:00)
== END 2019-12-10 17:40 | disposition home or self-care (01) | DRG 177 ==
LOC: ER 04:08 → 4 NORTH 05:24
PROVIDERS: ADMIT Internal Medicine; ATTEND Internal Medicine
DX: A48.1 Legionnaires' disease (principal); J96.01 Acute respiratory failure with hypoxia; E87.1 Hypo-osmolality and hyponatremia; J44.0 Chronic obstructive pulmonary disease with (acute) lower respiratory infection; J44.1 Chronic obstructive pulmonary disease with (acute) exacerbation; D75.89 Other specified diseases of blood and blood-forming organs; E03.9 Hypothyroidism, unspecified; F17.210 Nicotine dependence, cigarettes, uncomplicated; I10 Essential (primary) hypertension; J20.9 Acute bronchitis, unspecified; Z82.49 Family history of ischemic heart disease and other diseases of the circulatory system; F10.20 Alcohol dependence, uncomplicated; K21.9 Gastro-esophageal reflux disease without esophagitis; Z88.8 Allergy status to other drugs, medicaments and biological substances; Z79.899 Other long term (current) drug therapy
CPT/HCPCS: 36415; 71045; 80048; 80053; 83880; 84484; 85007; 85025; 93005; 94640; 94760; 96374; 99291; J1650; J2920; J2930; J7030; G0378; J7613; J7626; Q0163